=== PATIENT | female | born 1995 | race Caucasian/White ===

== ENCOUNTER 2017-03-27 07:35 | Emergency (ER) | payer OTHER ==
[2017-03-27 07:55] VITALS: BP 129/84
[2017-03-27] MEDS ORDERED: methylPREDNISolone 125 MG* 2 ML VIAL IM ONE (08:07)
[2017-03-27] MEDS ORDERED: Albuterol/Ipratropium NEB.SOL* Albuterol 2.5 MG/Ipratropium 0.5 MG 3 ML INH ONE (08:07)
--- NOTE | 2017-03-27 08:18 | UC ---
Respiratory Complaint HPI - HPI Summary HPI Summary: Cough for three days. She has had wheezing. cough is bad at night and there is trouble sleeping. no known fever. no hemoptysis. she has hx of asthma. inhaler has been helping. Tessallaury perles are not helping. - History of Current Complaint Chief Complaint: UCRespiratory Stated Complaint: WHEEZY COUGH CONGESTION CHEST TIGHTNESS Time Seen by Provider: 03/27/17 08:00 Hx Obtained From: Patient Hx Last Menstrual Period: 03/14/17 Onset/Duration: Gradual Onset, Lasting Days Timing: Constant Severity Initially: Moderate Severity Currently: Moderate Character: Cough: Nonproductive Aggravating Factors: Deep Breaths, Recumbent Position, Nothing Alleviating Factors: Bronchodilator Associated Signs And Symptoms: Positive: Wheezing, URI, Nasal Congestion, Hoarseness. Negative: Fever, Chills, Pleuritic Chest Pain, Calf Pain, Calf Swelling - Allergies/Home Medications Allergies/Adverse Reactions: Allergies Allergy/AdvReac Type Severity Reaction Status Date / Time No Known Allergies Allergy Verified 03/27/17 07:55 Home Medications: Home Medications Albuterol HFA INHALER* [Ventolin HFA Inhaler*] 2 puff INH Q4H PRN 03/27/17 [ History Confirmed 03/27/17] PMH/Surg Hx/FS Hx/Imm Hx Previously Healthy: No - asthma. - Surgical History Surgical History: None - Family History Known Family History: Negative: Diabetes - Social History Occupation: Employed Full-time Alcohol Use: None Substance Use Type: None Smoking Status (MU): Never Smoked Tobacco Have You Smoked in the Last Year: No - Immunization History Most Recent Influenza Vaccination: Not the 2015/2016 Season Vaccination Up to Date: Yes Review of Systems Respiratory: Cough All Other Systems Reviewed And Are Negative: Yes Physical Exam Triage Information Reviewed: Yes Appearance: Well-Appearing, No Pain Distress - non toxic, pleasant. frequent dry cough., Well-Nourished Vital Signs: Initial Vital Signs Temp 97 F 03/27/17 07:48 Pulse 92 03/27/17 07:48 Resp 20 03/27/17 07:48 BP 129/84 03/27/17 07:48 Pulse Ox 98 03/27/17 07:48 Vital Signs Reviewed: Yes Eye Exam: Normal ENT Exam: Normal Neck exam: Normal Respiratory Exam: Other Respiratory: Positive: No accessory muscle use, Wheezing, Other: - neg egophony. There is good air movement and no increased work of breathing.. Negative: Respiratory distress, Decreased breath sounds, Accessory muscle use, Crackles, Rhonchi, Stridor Abdominal Exam: Normal Musculoskeletal Exam: Normal Neurological Exam: Normal Psychological Exam: Normal Skin Exam: Normal UC Diagnostic Evaluation - Laboratory O2 Sat by Pulse Oximetry: 98 Respiratory Course/Dx - Course Course Of Treatment: reactive airway disease with acute asthma exacerbation due to URI. possible pertusis as she has vomited one time with the coughing. she has wheezing and dry cough. We will aggressively manage. She will return to ed for any worsening. no hx of intubation or hospitalization with asthma. - Differential Dx/Diagnosis Differential Diagnosis/HQI/PQRI: Aspiration, Asthma, Bronchitis, CHF, Pulmonary Edema, Pneumothorax Provider Diagnoses: asthma exacerbation. acute bronchitis. Discharge - Discharge Plan Condition: Good Disposition: HOME Prescriptions: Acetaminop/Codeine 30 MG TAB* [Tylenol/Codeine 30 MG TAB*] 1 tab PO Q6H PRN #16 tab MDD 4 PRN Reason: Cough Azithromyxin JAIME (NF) [Z-Jaime (Zithromax) 250 mg tabs #6] 6 tab PO .TODAY, THEN 1 DAILY #6 tab Spacer/Aerosol-Holding Chamber [Aerochamber Plus] 1 mis INH QID #1 mis predniSONE TAB* [Deltasone TAB*] 20 mg PO DAILY #15 tab Patient Education Materials: Asthma (ED), Bronchospasm (ED), Wheezing (ED) Forms: *Work Release Referrals: Reyna Meadows PA [Primary Care Provider] - 2 Days
[2017-03-27] MEDS ORDERED: Ondansetron TAB* 4 MG PO ONE (08:43)
--- NOTE | 2017-03-29 07:39 | ED ---
Progress - Progress Note Progress Note: NEGATIVE FOR PERTUSSIS. F/U ER OR PCP IF WORSE. Course/Dx - Course Course Of Treatment: reactive airway disease with acute asthma exacerbation due to URI. possible pertusis as she has vomited one time with the coughing. she has wheezing and dry cough. We will aggressively manage. She will return to ed for any worsening. no hx of intubation or hospitalization with asthma. - Diagnoses Provider Diagnoses: Cough
== END 2017-03-27 08:53 | disposition home or self-care (01) ==
LOC: UCCORT 07:35
DX: J45.901 Unspecified asthma with (acute) exacerbation (principal); J20.9 Acute bronchitis, unspecified
CPT/HCPCS: 87798; 96372; 99212; A9270-GY; G0463; J2930

== ENCOUNTER 2017-08-27 18:04 | Emergency (ER) | payer OTHER ==
[2017-08-27 19:22] VITALS: BP 117/75
[2017-08-27] MEDS ORDERED: Oseltamivir CAP* 75 MG CAP PO ONE ×2 (20:40)
--- NOTE | 2017-08-27 20:40 | UC ---
Ear Complaint HPI - HPI Summary HPI Summary: 21 yo male with the onset of f/c, headache, cough and severe myalgias chest hurts when she cough no wheezing she has asthma no n/v/d - History of Current Complaint Chief Complaint: UCRespiratory Stated Complaint: CHEST JUAQUIN,GALVIN,COUGH Time Seen by Provider: 08/27/17 20:33 Hx Obtained From: Patient Hx Last Menstrual Period: 08/23/17 Onset/Duration: Sudden Onset, Lasting Hours Severity Initially: Severe Severity Currently: Severe Pain Intensity: 8 - ear pain mild/cp and myalgias Pain Scale Used: 0-10 Numeric Associated Signs/Symptoms: Positive: Hearing Loss - Allergies/Home Medications Allergies/Adverse Reactions: Allergies Allergy/AdvReac Type Severity Reaction Status Date / Time No Known Allergies Allergy Verified 08/27/17 19:22 PMH/Surg Hx/FS Hx/Imm Hx Previously Healthy: Yes Respiratory History: Asthma - Surgical History Surgical History: None - Family History Known Family History: Negative: Diabetes - Social History Alcohol Use: None Substance Use Type: None Smoking Status (MU): Never Smoked Tobacco Have You Smoked in the Last Year: No - Immunization History Most Recent Influenza Vaccination: Not the 2015/2016 Season Vaccination Up to Date: Yes Review of Systems Constitutional: Fever, Chills, Fatigue Skin: Negative Eyes: Negative ENT: Ear Ache, Nasal Discharge Respiratory: Cough Cardiovascular: Chest Pain Gastrointestinal: Negative Genitourinary: Negative Motor: Negative Neurovascular: Negative Musculoskeletal: Myalgia Neurological: Negative Psychological: Negative Is Patient Immunocompromised?: No All Other Systems Reviewed And Are Negative: Yes Physical Exam Triage Information Reviewed: Yes Appearance: Well-Appearing, No Pain Distress, Well-Nourished Vital Signs: Initial Vital Signs Temp 99.6 F 08/27/17 19:18 Pulse 96 08/27/17 19:18 Resp 16 08/27/17 19:18 BP 117/75 08/27/17 19:18 Pulse Ox 99 08/27/17 19:18 Vital Signs Reviewed: Yes Eyes: Positive: Conjunctiva Clear ENT: Positive: Hearing grossly normal, Nasal congestion, TM bulging, TM dull, Uvula midline. Negative: Tonsillar swelling, Tonsillar exudate, Trismus, Muffled voice, Hoarse voice, Dental tenderness, Sinus tenderness Neck: Positive: Supple, Nontender, No Lymphadenopathy Respiratory: Positive: Lungs clear, Normal breath sounds, No respiratory distress, No accessory muscle use. Negative: Chest non-tender - tender sternal borders Cardiovascular: Positive: RRR, No Murmur Musculoskeletal: Positive: ROM Intact, No Edema Neurological: Positive: Alert Psychological Exam: Normal Skin Exam: Normal Ear Complaint Course/Dx - Course Course Of Treatment: no flu test here due to nationwide shortage - Differential Dx/Diagnosis Provider Diagnoses: influenza versus influenza like illness Discharge - Discharge Plan Condition: Stable Disposition: HOME Patient Education Materials: Influenza (ED) Forms: *Work Release Referrals: Reyna Meadows PA [Primary Care Provider] - 4 Days (if not better) Additional Instructions: rest fluids tylenol or advil recheck for new or worsening symptoms
== END 2017-08-27 20:58 | disposition home or self-care (01) ==
LOC: UCCORT 18:04
DX: R50.9 Fever, unspecified (principal); R53.83 Other fatigue; R09.81 Nasal congestion; H92.09 Otalgia, unspecified ear; R05 Cough; R07.9 Chest pain, unspecified; M79.1 Myalgia; J45.909 Unspecified asthma, uncomplicated
CPT/HCPCS: 99212; A9270-GY; G0463

== ENCOUNTER 2018-12-27 19:50 | Emergency (ER) | payer SELFPAY ==
[2018-12-27] MEDS ORDERED: Albuterol/Ipratropium NEB.SOL* Albuterol 2.5 MG/Ipratropium 0.5 MG 3 ML INH ONE (20:20)
--- NOTE | 2018-12-27 20:23 | UC ---
Respiratory Complaint HPI - HPI Summary HPI Summary: C/O cough with wheezing going on 10 days. Was given prednisone without any real change. Has an albuterol inhaler, last used around noon. No fevers but did feel warm. Nasal congestion without any sinus pain. - History of Current Complaint Chief Complaint: UCRespiratory Stated Complaint: RN,COUGH, CHEST CONGESTION Time Seen by Provider: 12/27/18 20:15 Hx Obtained From: Patient Hx Last Menstrual Period: 12/01/18 ?: No Onset/Duration: Gradual Onset, Lasting Days - 10, Still Present Severity Initially: Moderate Severity Currently: Moderate Pain Intensity: 6 Character: Cough: Productive - occasional brown sputum Aggravating Factors: Deep Breaths, Recumbent Position Alleviating Factors: Bronchodilator - slight improvement Associated Signs And Symptoms: Positive: Wheezing, URI, Nasal Congestion - Allergies/Home Medications Allergies/Adverse Reactions: Allergies Allergy/AdvReac Type Severity Reaction Status Date / Time No Known Allergies Allergy Verified 12/27/18 20:09 PMH/Surg Hx/FS Hx/Imm Hx Previously Healthy: Yes - Surgical History Surgical History: Yes Surgery Procedure, Year, and Place: [place] teeth - Family History Known Family History: Negative: Cardiac Disease, Hypertension, Diabetes - Social History Occupation: Employed Full-time Lives: Alone - with boyfriend Alcohol Use: None Substance Use Type: None Smoking Status (MU): Never Smoked Tobacco Have You Smoked in the Last Year: No - Immunization History Most Recent Influenza Vaccination: Not the 2015/2016 Season Vaccination Up to Date: Yes Review of Systems All Other Systems Reviewed And Are Negative: Yes ENT: Positive: Nasal Discharge Respiratory: Positive: Shortness Of Breath - wheezing, Cough Is Patient Immunocompromised?: No Physical Exam Triage Information Reviewed: Yes Appearance: No Pain Distress, Well-Nourished, Ill-Appearing - mild Vital Signs: Initial Vital Signs Temp 96.8 F 12/27/18 20:04 Pulse 88 12/27/18 20:04 Resp 16 12/27/18 20:04 BP 126/78 12/27/18 20:04 Pulse Ox 98 12/27/18 20:04 Vital Signs Reviewed: Yes Eyes: Positive: Conjunctiva Clear ENT: Positive: Pharynx normal, Nasal congestion, TMs normal Neck exam: Normal Re-Evaluation - Re-Evaluation First Eval Re-Evaluation Time: 20:38 Change: Improved - decreased wheezing with coughing. Respiratory Course/Dx - Differential Dx/Diagnosis Differential Diagnosis/HQI/PQRI: Asthma, Laryngitis, Lower Resp Infection, Sinusitis Provider Diagnosis: Upper respiratory infection, Bronchospasm, acute Discharge - Sign-Out/Discharge Documenting (check all that apply): Patient Departure All imaging exams completed and their final reports reviewed: No Studies - Discharge Plan Condition: Stable Disposition: HOME Prescriptions: predniSONE TAB* [Deltasone 20 MG TAB*] 60 mg PO DAILY #18 tab Patient Education Materials: Bronchospasm (ED), Prednisone (By mouth) Referrals: Reyna Meadows PA [Primary Care Provider] - Additional Instructions: NASAL SPRAYS AND DROPS: Afrin in the PUMP/ MIST bottle (Get generic 12 hours nasal decongestant spray). Tilt your head down and look at the floor while doing a strong sniff with the spray. Decongestant nasal sprays and drops often give dramatic relief from congestion. They are often recommended for patients with sinus infection to assist with sinus drainage. Persons with high blood pressure should consult the doctor before using these nasal sprays. Afrin and Baldomero-Synephrine are common [id number] preparations. They should not be used for more than five days, as "rebound" congestion can occur - - the congestion flares as the drug wears off. A way of dealing with this rebound congestion problem is to medicate only one nostril each time, allowing the other nostril to recover from the medicine' s effects. When you no longer need the drug during the day, spray only one nostril each night. This helps you sleep well without severe rebound congestion. Call the doctor if you develop severe headache, palpitations, or chest pain. - Billing Disposition and Condition Condition: STABLE Disposition: Home
[2018-12-27] MEDS ORDERED: methylPREDNISolone 125 MG* 2 ML VIAL IM ONE (20:37)
[2018-12-27 20:54] VITALS: BP 123/68
== END 2018-12-27 20:56 | disposition home or self-care (01) ==
LOC: UCCORT 19:50
DX: J06.9 Acute upper respiratory infection, unspecified (principal); J98.01 Acute bronchospasm
CPT/HCPCS: 96372; 99212; A9270-GY; G0463; J2930